=== PATIENT | female | born 1945 | race Caucasian/White ===

== ENCOUNTER 2016-06-19 16:49 | Emergency (ER) | payer MEDICARE ==
[~2016-06-19] VITALS: Ht 160 cm; Wt 70.3 kg
[~2016-06-19 16:49] MED LIST: CALC-671 PO; COLON HEALTH; ENLP10T GT; ESTR0.5T PO; FISH1CAP15 PO; GLUC-132 PO; SIMV40TA4 PO
--- OUTSIDE RECORDS SUMMARY | 2016-06-19 16:54 | XMS REPORT | Continuity of Care Document ---
Author Author [facility] Organization [facility] Address Unknown Phone Unavailable Care Team Providers Care Miniature Set Builder Name Role Phone TOYA SHIPMAN MD PCP Insurance Providers Payer Name Policy Number Subscriber Name Relationship Wps Medicare [id number] Karina Oviedo 18 Self / Same As Patient Blue Cross [facility] Supp [id number] Karina Oviedo 18 Self / Same As Patient Advance Directives Directive Response Recorded Date/Time Advance Directives No 10/18/14 7:15am Health Care Power of Chief Engineer Waterworks No 10/18/14 7:15am Organ Donor Yes 10/18/14 7:15am Resuscitation Status Full Code 10/18/14 7:15am Problems No known problems or medical conditions. Medications Medication Dose Route Sig Days/Qty Instructions Order Date Discontinued Date Status Simvastatin 40 Mg PO DAILY 10/18/14 Active Enalapril Maleate 10 Mg GT DAILY 10/18/14 Active Fish Oil/Dha/Epa 2 Each PO 10/18/14 Active Calcium Carbonate/Vitamin D3 2 Each PO DAILY 10/18/14 Active [Colon Health ] 1 DAILY 10/18/14 Active Estradiol 0.5 Mg PO DAILY 10/18/14 Active Glucosamine/D3/Boswellia Tisha 1 Each PO BEDTIME 10/18/14 Active Social History Social History Problem Response Recorded Date/Time Recent Foreign Travel No 10/18/2014 7:15am Smoking Status Never a Smoker 10/18/2014 7:10am Do you dip or chew tobacco? No 10/18/2014 7:10am Query Response Start Date Stop Date Smoking Status Never a Smoker Hospital Discharge Instructions No hospital discharge instructions. Plan of Care No plan of care. Functional Status No functional status results. Allergies, Adverse Reactions, Alerts Allergen Type Severity Reaction Status Last Updated iodine ([id number]) Allergy Unknown Active 10/18/14 Immunizations No immunization records. Vital Signs Acute Vital Signs Vital Response Date/Time Temperature (Fahrenheit) 97.7 degrees F (97.6 - 99.5) Temperature (Calculated Celsius) 36.64952 degrees C (36.4 - 37.5) Temperature Source Tympanic Pulse Rate (adult) 78 bpm (60 - 90) Respiratory Rate 18 bpm (12 - 24) O2 Sat by Pulse Oximetry 95 % (88 - 100) Blood Pressure 187/84 mm Hg Blood Pressure 187/84 mm Hg Pain Pain Intensity 0 Pain Pain Intensity 0 Height (Feet) 5 feet Height (Inches) 3.00 inches Height (Calculated Centimeters) 160.952793 cm Weight (Pounds) 155 pounds Weight (Calculated Grams) 84427.818 gm Weight (Calculated Kilograms) 70.674833 kilograms Height 5 ft 3 in Weight 155 lb Body Mass Index 27.5 kg/m^2 Results No known relevant diagnostic tests, laboratory data and/or discharge summary. Procedures No known history of procedures. Encounters Encounter Location Date/Time Registered Surgical Day Care Via [facility] 10/18/14 6:49am Registered Clinic Via [facility] 10/12/14 6:02am
[2016-06-19] MEDS ORDERED: LIDOCAINE/EPI 1%-1:100,000 (XYLOCAINE) 20ML ONE (16:58)
[2016-06-19] MEDS ORDERED: TETANUS,DIPTH,PERTUSS P/F (BOOSTRIX) 0.5 ML VIAL IM ONE (17:00)
[2016-06-19] MEDS ORDERED: LIDOCAINE/EPI 1%-1:200,000 (XYLOCAINE) 30 ML VIAL INJ ONE (17:00)
--- NOTE | 2016-06-19 17:01 | ED Head Injury ---
General Stated Complaint: HEAD INJ Source: patient Exam Limitations: no limitations History of Present Illness Time seen by provider: 17:00 Initial Comments To ER with a laceration to the left side of the scalp. This occurred when she was cleaning out her closet standing on a step stool when she fell hitting the left side of her head on the door frame. No other injuries. No neck pain. No loss of consciousness. Tetanus is not up-to-date. She is currently being treated for a blood clot in the right eye by an footwear machinery instructor in [place] with injections into the eye. She denies any vision changes since the fall. Denies other pains . Occurred: just prior to arrival Severity: mild Location: parietal Method of Injury: fell Loss of Consciousness: no loss of consciousness Associated Systoms: Denies Symptoms Allergies and Home Medications Allergies Coded Allergies: iodine (Unverified Allergy, Unknown, 10/18/14) Home Medications 1 DAILY (Reported) Calcium Carbonate/Vitamin D3 1 Each Tablet 2 EACH PO DAILY (Reported) Enalapril Maleate 10 Mg Tab 10 MG GT DAILY (Reported) Estradiol 0.5 Mg Tablet 0.5 MG PO DAILY (Reported) Fish Oil/Dha/Epa 1 Each Capsule 2 EACH PO (Reported) Glucosamine/D3/Boswellia Tisha 1 Each Tablet 1 EACH PO HS (Reported) Simvastatin 40 Mg Tablet 40 MG PO DAILY (Reported) Constitutional: see HPI Eyes: See HPI Ears, Nose, Mouth, Throat: no symptoms reported Respiratory: no symptoms reported Cardiovascular: no symptoms reported Genitourinary: no symptoms reported Musculoskeletal: no symptoms reported Skin: see HPI Psychiatric/Neurological: See HPI Headache Past Nmqmmgh-Iwnpop-Mrqmlq Hx Patient Social History Recent Foreign Travel: No Contact w/Someone Who Travel: No Respiratory Hx Respiratory Disorders: No Cardiovascular Hx Cardiac Disorders: No Neurological Hx Neurological Disorders: No Gastrointestinal Hx Gastrointestinal Disorders: No Musculoskeletal Hx Musculoskeletal Disorders: No Endocrine Hx Endocrine Disorders: No Physical Exam Vital Signs Vital Sign - Last 12Hours 06/19/16 17:06 Temp 97.6 Pulse 107 Resp 20 B/P 164/130 Pulse Ox 96 O2 Delivery Room Air Capillary Refill : General Appearance: WD/WN no apparent distress HEENT: PERRL/EOMI normal ENT inspection TMs normal other (2 cm laceration to the left parietal aspect of the scalp. Bleeding is controlled.) Neck: non-tender full range of motionNo tender lateral, No tender midline Cardiovascular: tachycardia Respiratory: chest non-tender lungs clear normal breath sounds no respiratory distress no accessory muscle use Gastrointestinal: non tender Extremities: normal range of motion non-tender Psychiatric: alert oriented x 3 Crainal Nerves: normal hearing normal speech PERRL Coordination/Gait: normal finger to nose normal gait Skin: normal color warm/dry laughing, joking with staff. States BP is up because she's "just nervous" and that it was up last time she had to come to ER. Ike Coma Score Best Eye Response: (4) Open Spontaneously Best Verbal Response: (5) Oriented Best Motor Response: (6) Obeys Commands Ike Total: 15 Laceration Repair : Wound Location: Scalp Wound's Depth, Shape: sub Q Wound Explored: clean Irrigated w/ Saline (ccs): 30 Anesthesia: Lidocaine w/ Epi Staple Repair: Stapler 35W Progress Area anesthetized with 1 percent lidocaine without epinephrine totaling 2 mL. Area was then scrubbed with flexing/saline solution and irrigated with 20 mils liters of the same. Wound was then closed using 4 jacy. Progress/Results/Core Measures Results/Orders My Orders Orders-BLANQUITA CLARKE APRN Ct Head/Cervical Spine Wo (06/19/16 16:59) Dipht,Pertuss(Acell),Tet Adult (Boostrix (06/19/16 17:00) Lidocaine/Epi 1% 1:200,00 (Xylocaine/Epi (06/19/16 17:00) Lidocaine/Epi 1% 1:100,000 (Xylocaine /E (06/19/16 16:58) Medications Given in ED Current Medications Medications Dose Ordered Sig/Thao Route Start Time Stop Time Status Last Admin Dose Admin Diphtheria/ Tetanus/Acell Pertussis 0.5 ml ONCE ONCE IM 06/19/16 17:00 06/19/16 17:01 DC 06/19/16 17:15 0.5 ML Lidocaine/ Epinephrine 20 ml STK-MED ONCE .ROUTE 06/19/16 16:58 06/19/16 17:05 DC 06/19/16 17:15 20 ML Vital Signs/I&O Vital Sign - Last 12Hours 06/19/16 06/19/16 17:06 17:35 Temp 97.6 97.6 Pulse 107 107 Resp 20 20 B/P 164/130 Pulse Ox 96 96 O2 Delivery Room Air Departure Impression Impression: Primary Impression: Scalp laceration Qualified Code: S01.01XA - Laceration without foreign body of scalp, initial encounter Disposition: 01 HOME, SELF-CARE Condition: Improved Departure-Patient Inst. Decision time for Depature: 17:18 Referrals: TOYA SHIPMAN MD (PCP) Primary Care Physician Patient Instructions: Laceration Repair With [place] (DC) Add. Discharge Instructions: 1. Return to ER for any concerns 2. Have the jacy removed from her scalp either here in the emergency room at no charge or at your doctor's office in 7 days 3. You may wash her hair starting tomorrow BLANQUITA CLARKE APRN Jun 19, 2016 17:01 BLANQUITA CLARKE APRN Jun 19, 2016 17:01
--- NOTE | 2016-06-19 17:27 | Diagnostic Imaging Report ---
PROCEDURE: CT head and CT cervical spine without contrast. TECHNIQUE: Multiple contiguous axial images were obtained through the brain and cervical spine without the use of intravenous contrast. Sagittal and coronal reformations through the cervical spine were then performed. INDICATION: Fall. COMPARISON: None. FINDINGS: Head CT: No acute intracranial hemorrhage, mass effect, or edema is seen. Prather-white junction is preserved. The ventricles appear normal. No acute focal abnormality is suspected. Paranasal sinuses and mastoids are clear as visualized. Cervical spine CT: No acute fracture, traumatic malalignment, or osseous destructive process is suspected. There is some straightening of the normal cervical lordosis which may be positional or muscular. Vertebral body heights are maintained. There is fairly extensive degenerative change throughout the cervical spine with disc space narrowing and spurring as well as facet arthropathy. This results in foraminal narrowing bilaterally at multiple levels most severe bilaterally at the C4-C5 level. Prevertebral soft tissues appear unremarkable. IMPRESSION: 1. No evidence of an acute intracranial abnormality. 2. No evidence of an acute cervical spine abnormality. Degenerative changes as described. Dictated by: Dictated on workstation # [id number]
[2016-06-19 17:35] VITALS: BP 164/130
== END 2016-06-19 17:35 | disposition home or self-care (01) ==
LOC: EDUNIT# 16:49 → ER 16:50
DX: S01.01XA Laceration without foreign body of scalp, initial encounter (principal); Z23 Encounter for immunization; W17.89XA Other fall from one level to another, initial encounter; Y92.009 Unspecified place in unspecified non-institutional (private) residence as the place of occurrence of the external cause; Y99.8 Other external cause status
CPT/HCPCS: 12001; 70450; 72125; 90471; 90715

== ENCOUNTER → 2016-06-20 | Outpatient (CLI) | payer MEDICARE ==
--- OUTSIDE RECORDS SUMMARY | 2016-06-20 09:23 | XMS REPORT | Continuity of Care Document ---
Author Author [facility] Organization [facility] Address Unknown Phone Unavailable Care Team Providers Care Sheepskin Pickler Name Role Phone TOYA SHIPMAN MD PCP Insurance Providers Payer Name Policy Number Subscriber Name Relationship Wps Medicare [id number] Karina Oviedo 18 Self / Same As Patient Blue Cross [facility] Supp [id number] Karina Oviedo 18 Self / Same As Patient Advance Directives Directive Response Recorded Date/Time Advance Directives No 10/18/14 7:15am Health Care Power of Applications Intern No 10/18/14 7:15am Organ Donor Yes 10/18/14 [...] Type Severity Reaction Status Last Updated iodine ([id number]) Allergy Unknown Active 10/18/14 Immunizations No immunization records. Vital Signs Acute Vital Signs Vital Response Date/Time Temperature (Fahrenheit) 97.7 degrees F (97.6 - 99.5) Temperature (Calculated Celsius) 36.04528 degrees C (36.4 - 37.5) Temperature Source Tympanic Pulse Rate (adult) 78 bpm (60 - 90) Respiratory Rate 18 bpm (12 - 24) O2 Sat by Pulse Oximetry 95 % (88 - 100) Blood Pressure 187/84 mm Hg Blood Pressure 187/84 mm Hg Pain Pain Intensity 0 Pain Pain Intensity 0 Height (Feet) 5 feet Height (Inches) 3.00 inches Height (Calculated Centimeters) 160.323148 cm Weight (Pounds) 155 pounds Weight (Calculated Grams) 76214.818 gm Weight (Calculated Kilograms) 70.284759 kilograms Height 5 ft 3 in Weight 155 lb Body Mass Index 27.5 kg/m^2 Results No known relevant diagnostic tests, laboratory data and/or discharge summary. Procedures No known history of procedures. Encounters Encounter Location Date/Time Registered Surgical Day Care [facility] 10/18/14 6:49am Registered Clinic [facility] 10/12/14 6:02am
--- NOTE | 2016-06-20 19:23 | Diagnostic Imaging Report ---
Bilateral screening mammogram. The current study was also evaluated with a Computer Aided Detection (CAD) system. INDICATION: Screening. No current complaints stated on the questionnaire. COMPARISON: 05/17/15. FINDINGS: The breasts are composed of heterogeneously dense parenchyma which may decrease mammographic sensitivity. There are scattered benign-appearing calcifications. Allowing for technique and positional differences, no suspicious change is seen. IMPRESSION: Dense breasts with no definite change. ACR BI-RADS Category 2: Benign findings. Result letter will be mailed to the patient. Note: At least 10% of breast cancer is not imaged by mammography. Dictated by: Dictated on workstation # [id number]
== END ==
LOC: RAD 09:20
PROVIDERS: ATTEND Internal Medicine
DX: Z12.31 Encounter for screening mammogram for malignant neoplasm of breast (principal)

== ENCOUNTER 2016-06-26 08:48 | Emergency (ER) | payer MEDICARE ==
[~2016-06-26] VITALS: Ht 160 cm; Wt 70.3 kg
--- OUTSIDE RECORDS SUMMARY | 2016-06-26 08:53 | XMS REPORT | Continuity of Care Document ---
Author Author [facility] Organization [facility] Address Unknown Phone Unavailable Care Team Providers Care Asbestos Shingle Roofer Name Role Phone TOYA SHIPMAN MD PCP Insurance Providers Payer Name Policy Number Subscriber Name Relationship Wps Medicare [id number] Karina Oviedo 18 Self / Same As Patient Blue Cross [facility] Supp [id number] Karina Oviedo 18 Self / Same As Patient Advance Directives Directive Response Recorded Date/Time Advance Directives No 10/18/14 7:15am Health Care Power of Roofing Machine Operator No 10/18/14 7:15am Organ Donor Yes 10/18/14 [...] Type Severity Reaction Status Last Updated iodine ([id number]) Allergy Unknown Active 10/18/14 Immunizations No immunization records. Vital Signs Acute Vital Signs Vital Response Date/Time Temperature (Fahrenheit) 97.7 degrees F (97.6 - 99.5) Temperature (Calculated Celsius) 36.33067 degrees C (36.4 - 37.5) Temperature Source Tympanic Pulse Rate (adult) 78 bpm (60 - 90) Respiratory Rate 18 bpm (12 - 24) O2 Sat by Pulse Oximetry 95 % (88 - 100) Blood Pressure 187/84 mm Hg Blood Pressure 187/84 mm Hg Pain Pain Intensity 0 Pain Pain Intensity 0 Height (Feet) 5 feet Height (Inches) 3.00 inches Height (Calculated Centimeters) 160.951529 cm Weight (Pounds) 155 pounds Weight (Calculated Grams) 08176.818 gm Weight (Calculated Kilograms) 70.793181 kilograms Height 5 ft 3 in Weight 155 lb Body Mass Index 27.5 kg/m^2 Results No known relevant diagnostic tests, laboratory data and/or discharge summary. Procedures No known history of procedures. Encounters Encounter Location Date/Time Registered Surgical Day Care [facility] 10/18/14 6:49am Registered Clinic [facility] 10/12/14 6:02am
[2016-06-26 09:26] VITALS: BP 140/75
== END 2016-06-26 09:20 | disposition home or self-care (01) ==
LOC: EDUNIT# 08:48 → ER 08:49
DX: S01.01XD Laceration without foreign body of scalp, subsequent encounter (principal)
CPT/HCPCS: 99281

== ENCOUNTER → 2017-06-19 | Outpatient (CLI) | payer MEDICARE ==
--- NOTE | 2017-06-19 18:19 | Diagnostic Imaging Report ---
INDICATION: Digital mammogram bilateral screening. This study was compared to the prior exams of 06/20/16 and 05/17/15. At this time, there are no current complaints. The current study was also evaluated with a Computer Aided Detection (CAD) system. FINDINGS: The fibroglandular tissue in both breasts is heterogeneously dense. This does limit the sensitivity of this exam. Overall, there does not appear to have been any significant change when compared to the prior study. No primary or secondary sign of malignancy is noted. IMPRESSION: There is no radiographic evidence for malignancy. ACR BI-RADS Category 1: Negative. Result letter will be mailed to the patient. Note: At least 10% of breast cancer is not imaged by mammography. Dictated by: Dictated on workstation # [id number]
== END ==
LOC: RAD 09:16
PROVIDERS: ATTEND Nurse Practitioner
DX: Z12.31 Encounter for screening mammogram for malignant neoplasm of breast (principal)
CPT/HCPCS: 77067

== ENCOUNTER → 2017-10-16 | Outpatient (CLI) | payer MEDICARE ==
--- NOTE | 2017-10-16 19:10 | Diagnostic Imaging Report ---
INDICATION: Osteoporosis. FINDINGS: Bone mineral analysis of the lumbar spine and bilateral femoral necks was performed. Bone mineral density of lumbar spine at L2 through L4 is 1.176 with T score of -0.2. Bone mineral density of left femoral neck is 0.834 with T score of -1.5. Bone mineral density of right femoral neck is 0.828 with T score of -1.5. IMPRESSION: Normal bone mineral density of lumbar spine and osteopenia of bilateral femoral necks. Dictated by: Dictated on workstation # [id number]
== END ==
LOC: RAD 11:07
PROVIDERS: ATTEND Internal Medicine
DX: M85.851 Other specified disorders of bone density and structure, right thigh (principal); M85.852 Other specified disorders of bone density and structure, left thigh
CPT/HCPCS: 77080

== ENCOUNTER → 2018-10-06 | Outpatient (CLI) | payer MEDICARE ==
--- NOTE | 2018-10-06 16:55 | Diagnostic Imaging Report ---
INDICATION: Routine screening. COMPARISON: 06/19/2017 and 06/20/2016. TECHNIQUE: 2D and 3D bilateral screening mammography was performed with CAD. FINDINGS: Scattered fibroglandular densities are identified bilaterally. There are benign calcifications bilaterally. The density in the upper aspect of the right breast at posterior depth on the MLO view appears to be more prominent on today's study. This most likely represents fibroglandular tissue but additional views are recommended. No other suspicious density is seen. No malignant appearing microcalcifications are identified. IMPRESSION: Breast density. Additional views including spot compression, MLO, and mediolateral views are recommended for further evaluation. ACR BI-RADS Category 0: Incomplete. (Needs additional imaging evaluation). Result letter will be mailed to the patient. Note: At least 10% of breast cancer is not imaged by mammography. Dictated by: Dictated on workstation # [id number]
== END ==
LOC: RAD 12:26
PROVIDERS: ATTEND Nurse Practitioner
DX: Z12.31 Encounter for screening mammogram for malignant neoplasm of breast (principal); R92.8 Other abnormal and inconclusive findings on diagnostic imaging of breast
CPT/HCPCS: 77067

== ENCOUNTER → 2018-10-14 | Outpatient (CLI) | payer MEDICARE ==
--- NOTE | 2018-10-14 12:32 | Diagnostic Imaging Report ---
INDICATION: Abnormal screening mammogram. COMPARISON: 10/06/2018 and 06/19/2017. TECHNIQUE: A true lateral view and spot compression views of the right breast were obtained. The current study was evaluated with a Computer Aided Detection (CAD) system. FINDINGS: The previously described density appears to be superimposed fibroglandular tissue. There is no discrete mass, spiculated lesion, or suspicious calcification identified. IMPRESSION: Benign findings. ACR BI-RADS Category 2: Benign findings. Result letter will be mailed to the patient. Note: At least 10% of breast cancer is not imaged by mammography. Dictated by: Dictated on workstation # [id number]
== END ==
LOC: RAD 08:58
PROVIDERS: ATTEND Internal Medicine
DX: R92.8 Other abnormal and inconclusive findings on diagnostic imaging of breast (principal)

== ENCOUNTER → 2019-10-28 | Outpatient (CLI) | payer MEDICARE ==
--- NOTE | 2019-10-28 20:30 | Diagnostic Imaging Report ---
INDICATION: Routine screening. COMPARISON: Prior mammogram from 10/06/2018 and 06/19/2017. EXAMINATION: 2D and 3D bilateral screening mammography was performed with CAD. The current study was also evaluated with a Computer Aided Detection (CAD) system. FINDINGS: Both breasts are heterogeneously dense, limiting the sensitivity of mammography. There are benign calcifications, bilaterally. Overall parenchymal pattern appears stable. No dominant mass or malignant appearing microcalcifications are seen. Axillae are unremarkable. IMPRESSION: No mammographic features suspicious for malignancy are identified. ACR BI-RADS Category 2: Benign findings. Result letter will be mailed to the patient. Note: At least 10% of breast cancer is not imaged by mammography. Dictated by: Dictated on workstation # [id number]
== END ==
LOC: RAD 09:39
PROVIDERS: ATTEND Internal Medicine
DX: Z12.31 Encounter for screening mammogram for malignant neoplasm of breast (principal)
CPT/HCPCS: 77063; 77067

== ENCOUNTER → 2020-10-30 | Outpatient (CLI) | payer MEDICARE ==
--- NOTE | 2020-10-30 12:28 | Diagnostic Imaging Report ---
Indication: Routine screening. Comparison is made with prior mammogram from 10/28/2019 and 10/06/2018. 2-D and 3-D bilateral screening mammography was performed with CAD. Scattered fibroglandular densities are identified bilaterally. The parenchymal pattern is stable. No mass or malignant appearing microcalcifications are seen. There are benign calcifications bilaterally. The axillae are unremarkable. IMPRESSION: BI-RADS Category 2 No mammographic features suspicious for malignancy are identified. ACR BI-RADS Category 2: Benign findings. Result letter will be mailed to the patient. Note: At least 10% of breast cancer is not imaged by mammography. Dictated by: Dictated on workstation # [id number]
== END ==
LOC: RAD 09:28
PROVIDERS: ATTEND Internal Medicine
DX: Z12.31 Encounter for screening mammogram for malignant neoplasm of breast (principal)
CPT/HCPCS: 77063; 77067

== ENCOUNTER → 2021-11-01 | Outpatient (CLI) | payer MEDICARE ==
--- NOTE | 2021-11-05 15:45 | Diagnostic Imaging Report ---
INDICATION: Routine screening. Comparison is made with prior mammogram 10/30/2020 and 10/28/2019. 2-D and 3-D bilateral screening mammography was performed with CAD. Both breasts are heterogeneously dense, limiting the sensitivity of mammography. Occasional benign calcifications are noted. No mass or malignant-appearing microcalcifications are seen. Axillae are unremarkable. IMPRESSION: No mammographic features suspicious for malignancy are identified. BI-RADS Category 2 ACR BI-RADS Category 2: Benign findings. Result letter will be mailed to the patient. Note: At least 10% of breast cancer is not imaged by mammography. Dictated by: Dictated on workstation # [id number]
== END ==
LOC: RAD 10:03
PROVIDERS: ATTEND Internal Medicine
DX: Z12.31 Encounter for screening mammogram for malignant neoplasm of breast (principal)
CPT/HCPCS: 77063; 77067

== ENCOUNTER → 2022-11-14 | Outpatient (CLI) | payer MEDICARE ==
--- NOTE | 2022-11-14 14:57 | Diagnostic Imaging Report ---
INDICATION: Routine screening. Comparison is made with prior mammogram 11/01/2021 and 10/30/2020. 2-D and 3-D bilateral screening mammography was performed with CAD. CAD is utilized. The current study was also evaluated with a Computer Aided Detection (CAD) system. Both breasts are heterogeneously dense, limiting the sensitivity of mammography. The parenchymal pattern is stable. No mass or malignant-appearing microcalcifications are seen. Axillae are unremarkable. IMPRESSION: BI-RADS Category 1 No mammographic features suspicious for malignancy are identified. ACR BI-RADS Category 1: Negative. Result letter will be mailed to the patient. Note: At least 10% of breast cancer is not imaged by mammography. Dictated by: Dictated on workstation # [id number]
== END ==
LOC: RAD 09:59
PROVIDERS: ATTEND Internal Medicine
DX: Z12.31 Encounter for screening mammogram for malignant neoplasm of breast (principal)
CPT/HCPCS: 77063; 77067